=== PATIENT | male | born 1985 | race Caucasian/White ===

== ENCOUNTER 2018-08-15 15:32 | Emergency (ER) | payer BC ==
[2018-08-15 15:55] VITALS: BP 146/90
--- NOTE | 2018-08-15 16:16 | UC ---
Respiratory Complaint HPI - HPI Summary HPI Summary: 4 days of cough, chest congestion. sick contacts:none flu shot: no, declines rapid testing - History of Current Complaint Chief Complaint: UCGeneralIllness Stated Complaint: COUGH/CONGESTION Time Seen by Provider: 08/15/18 15:59 Pain Intensity: 0 Pain Scale Used: 0-10 Numeric Aggravating Factors: Nothing Alleviating Factors: Nothing Associated Signs And Symptoms: Negative: Dyspnea - Allergies/Home Medications Allergies/Adverse Reactions: Allergies Allergy/AdvReac Type Severity Reaction Status Date / Time No Known Allergies Allergy Verified 10/20/15 19:07 Home Medications: Home Medications Esomeprazole Magnesium [Nexium] 20 mg PO DAILY 08/15/18 [History Confirmed 08/15] PMH/Surg Hx/FS Hx/Imm Hx Previously Healthy: Yes Other History Of: Negative For: HIV - Surgical History Surgical History: Yes Surgery Procedure, Year, and Place: Right hand - Family History Known Family History: Positive: None Negative: Hypertension, Diabetes - Social History Alcohol Use: Occasionally Substance Use Type: None Smoking Status (MU): Former Smoker - Immunization History Most Recent Influenza Vaccination: Not the Season Review of Systems All Other Systems Reviewed And Are Negative: Yes Constitutional: Positive: Fatigue. Negative: Fever, Chills Skin: Negative: Rash Eyes: Negative: Drainage ENT: Positive: Sore Throat - one day of this, resolved on its own, Sinus Congestion. Negative: Ear Ache, Nasal Discharge Respiratory: Positive: Cough. Negative: Shortness Of Breath Cardiovascular: Negative: Chest Pain Gastrointestinal: Negative: Vomiting, Diarrhea, Nausea Neurological: Negative: Headache Physical Exam Triage Information Reviewed: Yes Appearance: Well-Appearing Vital Signs: Initial Vital Signs Temp 98.9 F 08/15/18 15:51 Pulse 85 08/15/18 15:51 Resp 16 08/15/18 15:51 BP 146/90 08/15/18 15:51 Pulse Ox 99 08/15/18 15:51 Vital Signs Reviewed: Yes Eyes: Positive: Conjunctiva Clear ENT: Positive: Pharynx normal, TMs normal, Uvula midline Neck: Positive: Supple, Nontender, No Lymphadenopathy Respiratory Exam: Normal Cardiovascular Exam: Normal Neurological: Positive: Alert Skin: Negative: Rashes UC Diagnostic Evaluation - Laboratory O2 Sat by Pulse Oximetry: 99 Respiratory Course/Dx - Course Course Of Treatment: Acute URI symptoms assoc. w/ occasional wheezing. none heard on exam. exam lung sounds normal. vitals good. afebrile and good O2. albuterol for symptoms. - Differential Dx/Diagnosis Differential Diagnosis/HQI/PQRI: Asthma, Bronchitis, Lower Resp Infection, Sinusitis Provider Diagnosis: URI (upper respiratory infection) Discharge - Sign-Out/Discharge Documenting (check all that apply): Patient Departure All imaging exams completed and their final reports reviewed: No Studies - Discharge Plan Condition: Good Disposition: HOME Prescriptions: Albuterol HFA INHALER* [Ventolin HFA Inhaler*] 2 puff INH Q4H PRN #1 mdi PRN Reason: Cough Patient Education Materials: Upper Respiratory Infection (ED) Forms: *Work Release Referrals: No Primary Care Phys,NOPCP [Primary Care Provider] - Additional Instructions: Please follow up with pcp if worsening. - Billing Disposition and Condition Condition: GOOD Disposition: Home
== END 2018-08-15 16:29 | disposition home or self-care (01) ==
LOC: UCCORT 15:32
DX: J06.9 Acute upper respiratory infection, unspecified (principal); R09.89 Other specified symptoms and signs involving the circulatory and respiratory systems; Z87.891 Personal history of nicotine dependence
CPT/HCPCS: 99212; G0463

== ENCOUNTER 2018-11-04 14:20 | Emergency (ER) | payer BC ==
[2018-11-04 14:59] VITALS: BP 162/97
--- NOTE | 2018-11-04 15:13 | UC ---
Throat Pain/Nasal Mathew HPI - HPI Summary HPI Summary: Sore throat for 2 or 3 days. Patient took 2 doses of amoxicillin 875 mg from a leftover prescription. He states his uvula had been swollen and red but now was much better. - History of Current Complaint Chief Complaint: UCRespiratory Stated Complaint: SORE THROAT Time Seen by Provider: 11/04/18 14:55 Hx Obtained From: Patient Onset/Duration: Gradual Onset Severity: Mild Pain Intensity: 0 Cough: None Associated Signs & Symptoms: Positive: Negative - Allergies/Home Medications Allergies/Adverse Reactions: Allergies Allergy/AdvReac Type Severity Reaction Status Date / Time No Known Allergies Allergy Verified 11/04/18 14:55 PMH/Surg Hx/FS Hx/Imm Hx Previously Healthy: Yes Other History Of: Negative For: HIV - Surgical History Surgical History: Yes Surgery Procedure, Year, and Place: Right hand - Family History Known Family History: Positive: None Negative: Hypertension, Diabetes - Social History Alcohol Use: Daily Alcohol Amount: "couple beers a day" Substance Use Type: None Smoking Status (MU): Light Every Day Tobacco Smoker Type: Cigarettes Amount Used/How Often: 1 cig/daily - Immunization History Most Recent Influenza Vaccination: Not the Season Review of Systems All Other Systems Reviewed And Are Negative: Yes ENT: Positive: Sore Throat Is Patient Immunocompromised?: No Physical Exam Triage Information Reviewed: Yes Appearance: Well-Appearing, No Pain Distress, Well-Nourished Vital Signs: Initial Vital Signs Temp 98.7 F 11/04/18 14:55 Pulse 100 11/04/18 14:55 Resp 17 11/04/18 14:55 BP 162/97 11/04/18 14:55 Pulse Ox 99 11/04/18 14:55 Vital Signs Reviewed: Yes Eye Exam: Normal ENT: Positive: TMs normal, Uvula midline - The uvula has a healing aphthous ulcer present.. Negative: Tonsillar swelling, Tonsillar exudate, Trismus, Muffled voice, Hoarse voice Neck exam: Normal Neck: Positive: Supple, Nontender, No Lymphadenopathy Respiratory: Positive: Lungs clear, Normal breath sounds, No respiratory distress, No accessory muscle use Cardiovascular: Positive: RRR, No Murmur, Pulses Normal, Brisk Capillary Refill Abdominal Exam: Normal Bowel Sounds: Positive: Present Musculoskeletal Exam: Normal Neurological Exam: Normal Psychological Exam: Normal Skin Exam: Normal Throat Pain/Nasal Course/Dx - Course Course Of Treatment: Rapid stress test was negative - Differential Dx/Diagnosis Provider Diagnosis: Pharyngitis Discharge - Sign-Out/Discharge Documenting (check all that apply): Patient Departure All imaging exams completed and their final reports reviewed: No Studies - Discharge Plan Condition: Fair Disposition: HOME Patient Education Materials: Canker Sores (ED) Referrals: [facility] [Outside] No Primary Care Phys,NOPCP [Primary Care Provider] - Additional Instructions: Increase fluids, warm saltwater gargles, throat lozenges. If not follow-up in 4 or 5 days if you continue to have a sore throat and do not take any leftover antibiotics. - Billing Disposition and Condition Condition: FAIR Disposition: Home - Attestation Statements Provider Attestation: Patient not seen by me. I was available for consult. I did not disposition this patient
== END 2018-11-04 15:18 | disposition home or self-care (01) ==
LOC: UCCORT 14:20
DX: J02.9 Acute pharyngitis, unspecified (principal); F17.210 Nicotine dependence, cigarettes, uncomplicated
CPT/HCPCS: 87651; 99211; G0463

== ENCOUNTER 2019-02-15 14:07 | Emergency (ER) | payer BC ==
[2019-02-15] MEDS ORDERED: LORazepam TAB(*) 1 MG PO ONE (14:24)
--- NOTE | 2019-02-15 14:26 | UC ---
Shortness of Breath HPI - HPI Summary HPI Summary: 33-year-old male presents with 3 day history of chest discomfort that he describes as feeling like a "chest cold". Patient reports that while driving to the urgent care center he became very anxious and had a sudden worsening of the chest tightness, became very short of breath, and felt like his heart was racing. States he has had issues with panic attacks in the past and has been evaluated in the emergency room for this 2 or 3 times. Patient reports he was initially treating his symptoms with Mucinex which she felt was helping however decided to add a cold and flu medication which he admits to taking additional doses over the recommended. His significant other who was with him reports that he has been obsessively checking the Internet regarding his symptoms as well as frequently checking his pulse rate and blood pressure multiple times a day. Denies fever, chills, ear pain, nasal congestion, sore throat, palpitations, diaphoresis, abdominal pain, nausea, or vomiting. - History of Current Complaint Stated Complaint: SOB,TIGHTNESS OF CHEST Time Seen by Provider: 02/15/19 14:16 Hx Obtained From: Patient - Allergy/Home Medications Allergies/Adverse Reactions: Allergies Allergy/AdvReac Type Severity Reaction Status Date / Time No Known Allergies Allergy Verified 11/04/18 14:55 Home Medications: Home Medications Esomeprazole Magnesium [Nexium] 10 mg PO DAILY 02/15/19 [History Confirmed 02/15] Levocetirizine Dihydrochloride [Xyzal Allergy 24Hr] 5 mg PO DAILY PRN 02/15/19 [ History Confirmed 02/15/19] Severe Cold And Flu Med 2 tab PO BID PRN 02/15/19 [History Confirmed 02/15/19] PMH/Surg Hx/FS Hx/Imm Hx GI/ History: Gastroesophageal Reflux Other History Of: Negative For: HIV - Surgical History Surgical History: Yes Surgery Procedure, Year, and Place: Right hand - Family History Known Family History: Positive: Non-Contributory - Social History Occupation: Employed Full-time Lives: With Family Alcohol Use: Daily Alcohol Amount: "couple beers a day" Substance Use Type: None Smoking Status (MU): Light Every Day Tobacco Smoker Type: Cigarettes Amount Used/How Often: 1 cig/daily - Immunization History Most Recent Influenza Vaccination: Not the Season Review of Systems All Other Systems Reviewed And Are Negative: Yes Constitutional: Positive: Fatigue. Negative: Fever, Chills Eyes: Negative: Drainage, Eye Redness ENT: Positive: Nasal Discharge, Sinus Congestion. Negative: Sore Throat, Ear Ache, Sinus Pain/Tenderness Respiratory: Positive: Shortness Of Breath. Negative: Cough Cardiovascular: Negative: Palpitations, Chest Pain Gastrointestinal: Negative: Abdominal Pain, Vomiting, Nausea Genitourinary: Positive: Negative Musculoskeletal: Positive: Negative Neurological: Positive: Negative Is Patient Immunocompromised?: No Physical Exam - Summary Physical Exam Summary: GENERAL APPEARANCE: Well developed, well nourished, alert and cooperative, and appears to be in no acute distress. EYES: Conjunctiva clear. No drainage. EARS: External auditory canals and tympanic membranes clear, hearing grossly intact. NOSE: No nasal discharge. THROAT: Pharynx normal, No tonsilar inflammation, swelling, exudate, or lesions. Uvula midline. NECK: Neck supple, non-tender without lymphadenopathy. CARDIAC: Normal S1 and S2. No S3, S4 or murmurs. Tachycardic. Rhythm is regular. There is no peripheral edema, cyanosis or pallor. Extremities are warm and well perfused. Capillary refill is less than 2 seconds. Peripheral pulses intact. LUNGS: Clear to auscultation without rales, rhonchi, wheezing or diminished breath sounds. ABDOMEN: Positive bowel sounds. Soft, nondistended, nontender. No guarding or rebound. No masses or hepatosplenomegally. MUSKULOSKELETAL: ROM intact to all extremities. No joint erythema or tenderness. Normal muscular development. Normal gait. SKIN: Skin normal color, texture and turgor with no lesions or eruptions. Triage Information Reviewed: Yes Vital Signs Reviewed: Yes Diagnostics - EKG Cardiac Rate: Tachycardia Cardiac Rhythm: Sinus: Normal Ectopy: None ST Segment: Normal EKG Comparison: Other - No comparison available Summary of EKG Findings: ST rate of 105. T-wave inversion in lead III likely normal variant. No ectopy or JUANA. Re-Evaluation - Re-Evaluation First Eval Re-Evaluation Time: 15:45 Change: Improved Comment: Patient states he is feeling better. No chest pain or SOB. Repeat EKG shows NSR at rate of 95. Continues to have T-wave inversion in lead III that is likely normal variant. No ectopy or JUANA. Shortness of Breath Dx - Course Course Of Treatment: 33-year-old male presents with 3 day history of chest discomfort that he describes as feeling like a "chest cold". Patient reports that while driving to the urgent care center he became very anxious and had a sudden worsening of the chest tightness, became very short of breath, and felt like his heart was racing. States he has had issues with panic attacks in the past and has been evaluated in the emergency room for this 2 or 3 times. Patient reports he was initially treating his symptoms with Mucinex which she felt was helping however decided to add a cold and flu medication which he admits to taking additional doses over the recommended. His significant other who was with him reports that he has been obsessively checking the Internet regarding his symptoms as well as frequently checking his pulse rate and blood pressure multiple times a day. Denies fever, chills, ear pain, nasal congestion, sore throat, palpitations, diaphoresis, abdominal pain, nausea, or vomiting. Patient was hypertensive and tachycardic at triage but otherwise had stable vital signs. His exam was overall unremarkable. Initial 12-lead EKG showed a sinus tachycardia at a rate of 105, T-wave inversion in lead 3 that is likely a normal variant however no previous EKGs were available for comparison. There was no ectopy or ST elevations. Patient was given lorazepam 1 mg PO and observed for approximately one hour. Patient did report improvement in his symptoms. Repeat EKG showed a normal sinus rhythm at a rate of 95. He remained hypertensive with otherwise stable vital signs. Patient was advised to stop cold and flu medications as this could be contributing to some of his symptomatology. We also discussed that his initial symptoms could likely be from a mild viral illness and would recommend continued symptomatic treatment. He was provided with the information for the [facility] physician referral service to assist him with establishing with a primary care provider. It is recommended that he follow up within 2-4 weeks. Anticipatory guidance and warning symptoms were reviewed with the patient. Verbalized understanding and agrees with plan of care - Differential Dx/Diagnosis Differential Diagnosis/HQI/PQRI: [place], Pneumonia, Pulmonary Embolism, Other - URI , Panic attack Provider Diagnosis: Chest tightness, Panic attack Discharge - Sign-Out/Discharge Documenting (check all that apply): Patient Departure All imaging exams completed and their final reports reviewed: No Studies - Discharge Plan Condition: Stable Disposition: HOME Patient Education Materials: Panic Attack (ED) Referrals: No Primary Care Phys,NOPCP [Primary Care Provider] - [facility] [place] [facility] [place]Outside] Additional Instructions: Your initial EKG showed a rapid heart rate but was otherwise normal and the repeat EKG was also normal including a normal rate. I suspect that your initial symptoms may be from a mild viral upper respiratory infection and that the symptoms that developed just prior to arrival or most likely from a panic attack. You are given a medication called lorazepam in the clinic to help with your symptoms. You may continue to use [id number] Mucinex as directed however I would advise that you stop taking any of the cold and flu medication as this could be contributing to some of your fast heart rate and anxiety. Your blood pressure in the clinic today was also elevated however this may be related to the cold and flu medications you been taken as well as a symptom of your panic attack. It is recommended that you have this rechecked. Have provided you with the contact information for the [facility] physician referral service. I would recommend that you contact him for assistance with establishing with a primary care provider within the next 2-4 weeks. Seek immediate medical attention in the emergency room if you develop severe chest pain, difficulty breathing, he will break out into a cold sweat, have any nausea or vomiting, or any worsening of symptoms. - Billing Disposition and Condition Condition: STABLE Disposition: Home - Attestation Statements Provider Attestation: I was available for consult. This patient was seen by the [facility]. The patient was presented to but not seen by or examined by me. I reviewed the initial EKG: Sinus tachycardia, <[address] depression in lead I, TWI , Normal MT and QRS. No JUANA. -Jesse Reynolds MD
[2019-02-15 15:40] VITALS: BP 152/95
== END 2019-02-15 16:12 | disposition home or self-care (01) ==
LOC: UCCORT 14:07
DX: R07.89 Other chest pain (principal); F41.0 Panic disorder [episodic paroxysmal anxiety]; R00.0 Tachycardia, unspecified; K21.9 Gastro-esophageal reflux disease without esophagitis; F17.210 Nicotine dependence, cigarettes, uncomplicated
CPT/HCPCS: 93005; 99212; A9270-GY; G0463

== ENCOUNTER 2019-02-17 16:25 | Emergency (ER) | payer BC ==
[2019-02-17 18:00] LABS: ABS Lymphocytes 1.3 10^3/ul (1.0-4.8); ABS Monocytes 0.5 10^3/ul (0-0.8); ABS Neutrophils 6.1 10^3/ul (1.5-7.7); Eosinophil % 0.3 %; Hematocrit 44 % (42-52); Hemoglobin 15.9 g/dL (14.0-18.0); Lymphocyte % 16.1 %; Mean Corpuscular HGB Conc 37 g/dL (31-36); Mean Corpuscular Hemoglobin 34 pg (27-31); Mean Corpuscular Volume 93 fL (80-94); Mean Platelet Volume 8.4 fL (7.4-10.4); Platelet Count 211 10^3/uL (150-450); Red Blood Count 4.68 10^6 /uL (4.18-5.48); Red Cell Distribution Width 13 % (10-15)
--- NOTE | 2019-02-17 18:02 | ED ---
HPI Chest Pain - HPI Summary HPI Summary: This patient is a 35 year old M presenting to [facility] with a chief complaint of chest pain since 4 days ago. He reports when he thinks about his chest pain that is when he feels his left arm start to tingle. Pt has an undiagnosed PMHx of panic attacks his whole life. Patient reports anxiety, diaphoretic, sense of doom, and nausea. Patient denies a history of PR, CHF, DVT or PE. Patient denies a family history of early cardiac , or PR (although he is not 100% sure). Patient denies SOB, fever. Pt has a PMHx of acid reflux, and previously when he went to ED he was dx with indigestion. - History of Current Complaint Chief Complaint: EDGeneral Time Seen by Provider: 02/17/19 17:30 Hx Obtained From: Patient Onset/Duration: Started Days Ago, Still Present Timing: Lasting Days Initial Severity: Mild Current Severity: Mild Pain Intensity: 2 Pain Scale Used: 0-10 Numeric Chest Pain Location: Diffuse Chest Pain Radiates: Yes Chest Pain Radiates To:: Arm Character: Tightness Aggravating Factor(s): Other: - thinking about it Alleviating Factor(s): Nothing Associated Signs and Symptoms: Positive: Chest Pain, Tingling, Diaphoresis, Nausea - Allergy/Home Medications Allergies/Adverse Reactions: Allergies Allergy/AdvReac Type Severity Reaction Status Date / Time No Known Allergies Allergy Verified 02/17/19 16:37 Home Medications: Home Medications Ascorbic Acid/Multivit-Min [Emergen-C 1,000 mg Packet] 1 packet PO DAILY [History Confirmed 02/17/19] PMH/Surg Hx/FS Hx/Imm Hx Endocrine/Hematology History: Denies: Hx Diabetes Cardiovascular History: Denies: Hx Hypertension Respiratory History: Denies: Hx Asthma, Hx Chronic Obstructive Pulmonary Disease (COPD), Hx Lung Cancer Neurological History: Denies: Hx Transient Ischemic Attacks (TIA) - Surgical History Surgery Procedure, Year, and Place: Right hand Infectious Disease History: No Infectious Disease History: Denies: Traveled Outside the [place] in Last 30 Days - Family History Known Family History: Positive: None, Non-Contributory Negative: Hypertension, Diabetes - Social History Occupation: Employed Full-time Alcohol Use: Daily Alcohol Amount: "couple beers a day" Substance Use Type: Reports: None Smoking Status (MU): Light Every Day Tobacco Smoker Type: Cigarettes Amount Used/How Often: 1 cig/daily Review of Systems Positive: Skin Diaphoresis. Negative: Fever Positive: Chest Pain Negative: Shortness Of Breath Positive: Nausea Positive: Other - pos - tingling in left arm Positive: Anxious All Other Systems Reviewed And Are Negative: Yes Physical Exam - Summary Physical Exam Summary: Constitutional: Well-developed, Well-nourished, Alert. (-) Distressed Skin: Warm, Dry HENT: Normocephalic; Atraumatic Eyes: Conjunctiva normal Neck: Musculoskeletal ROM normal neck. (-) JVD, (-) Stridor, (-) Nuchal rigidity Cardio: Rhythm regular, tachycardic, Heart sounds normal; Intact distal pulses; Radial pulses are 2+ and symmetric. (-) Murmur Pulmonary/Chest wall: Effort normal. (-) Respiratory distress, (-) Wheezes, (-) Rales Abd: Soft, (-) tenderness, (-) Distension, (-) Guarding, (-) Rebound Musculoskeletal: (-) Edema Lymph: (-) Cervical adenopathy Neuro: Alert, Oriented x3 Psych: anxious Triage Information Reviewed: Yes Vital Signs On Initial Exam: Initial Vitals Temp Pulse Resp BP Pulse Ox 98.6 F 107 16 167/117 99 02/17/19 16:34 02/17/19 16:34 02/17/19 16:34 02/17/19 16:34 02/17/19 16:34 Vital Signs Reviewed: Yes Diagnostics - Vital Signs Vital Signs Temp Pulse Resp BP Pulse Ox 02/17/19 16:34 98.6 F 107 16 167/117 99 - Laboratory Result Diagrams: 02/17/19 17:52 02/17/19 17:52 Lab Statement: Any lab studies that have been ordered have been reviewed, and results considered in the medical decision making process. - Radiology CXR Radiology Interpretation Completed By: Radiologist Summary of Radiographic Findings: CXR reveals, per radiologist, IMPRESSION: NO EVIDENCE FOR ACTIVE CARDIOPULMONARY DISEASE. ED physician has reviewed this radiology report. - EKG 1638 Cardiac Rate: Tachycardia EKG Rhythm: Sinus Rhythm Summary of EKG Findings: An EKG at 1638 reveals sinus tachycardia 107 bpm, t- wave inversion lead III, no change from prior EKG on 02/15/19 Re-Evaluation - Re-Evaluation First Eval Re-Evaluation Time: 19:25 Comment: Pt felt better after GI cocktail. Second Eval Re-Evaluation Time: 20:17 Comment: Discharge evaluation, HR 85 bpm. Chest Pain Course/Dx - Course Course Of Treatment: 33-year-old male with a self-reported history of anxiety presents with palpitations and chest tightness. Patient is well-appearing,. Chest Pain DDX: The patient is well appearing, with mild tachycardia. Given the patient's clinical presentation, highest on differential is atypical chest pain. Although less likely, differential also includes the following: -- Pneumothorax: Equal breath sounds, story inconsistent since gradual onset of symptoms. CXR shows no evidence of pneumothorax. Unlikely. --Cardiac tamponade : The history and physical are not concerning for tamponade. No Pulsus Paradoxus , no tachypnea. Unlikely. --Mediastinitis or esophageal rupture: The history is not consistent, as the patient has had no recent history of significant wretching, instrumentation, or mediastinal surgeries. Unlikely. --Aortic dissection: The patient does not describe the classical tearing chest pain radiating into the back, and the CXR does not show mediastinal widening or other signs of aortic dissection. Unlikely. --PE: tachycardic likely in the setting of alcohol use. D dimer <200. --ACS: The initial EKG shows no ischemic changes. The initial troponin is not elevated. Heart score - HEART Score. Based on a HEART score of 2 the patient has a low risk (<2% chance) of major adverse cardiac event within the next 6 weeks. I explained to the patient that based on the work-up today, her risk of heart attack is low and that he/she will be discharged with outpatient follow-up. Strict return precautions were discussed regarding worsening chest pain, new / atypical pain, shortness of breath, or any other serious concerns. Patient endorsed understanding and has no questions at this time. Source --. Terence BE, Ar AJ, Lanette KD, Shalom LOZANO, Mary Alice EG, Reji A, Jrery RF,. Abi AJ, Victoriano R, Rafael R, Juliet SH, van Taye R, Mary Alice TP, van mohsen Webber F,. Marie ARRIOLA, Alanis SEALS , Eva AW, Jodie POWELL. A prospective validation of. the HEART score for chest pain patients at the emergency department. Int J. Cardiol. 2013 Apr 3;168 (3):2153-8. 0-3: 2.5% risk of adverse cardiac event. In the HEART Score, these patients were discharged. (0.99% retrospective) (1.7% prospective). 4-6: 20.3% risk of adverse cardiac event, suggesting admission to the hospital. 11.6% (16.6 % prospective). =7: 72.7% risk of adverse cardiac event, suggesting early invasive measures with these patients. 65.2% (50.1% prospective) - Diagnoses Provider Diagnoses: Chest pain, Palpitations Discharge - Sign-Out/Discharge Documenting (check all that apply): Patient Departure - Discharge Patient Received Moderate/Deep Sedation with Procedure: No - Discharge Plan Condition: Stable Disposition: HOME Patient Education Materials: Chest Pain (ED), Heart Palpitations (ED) Referrals: [facility] [Outside] Additional Instructions: You were seen in the emergency department for pain and palpitations. Your EKG and chest x-ray are normal. Your labs did not show evidence of a heart attack or a blood clot in your lungs. If any studies were not completed at the time of discharge you will be called with the relevant results. Please follow up with your primary care doctor in next 2-3 days and return to emergency department for worsening pain, trouble breathing, chest pain or concerning symptoms. - Billing Disposition and Condition Condition: STABLE Disposition: Home - Attestation Statements Document Initiated by Jadiel: Yes Documenting Scribe: Carmen Zarate Provider For Whom Jadiel is Documenting (Include Credential): Dr. Chloé Pena MD Scribe Attestation: Carmen Paul scribed for Dr. Chloé Pena MD on 02/17/19 at 2103. Scribe Documentation Reviewed: Yes Provider Attestation: The documentation as recorded by the Carmen luo accurately reflects the service I personally performed and the decisions made by me, Dr. Chloé Pena MD Status of Scribe Document: Viewed
[2019-02-17 18:15] LABS: Albumin 5.2 g/dL (3.2-5.2); Albumin/Globulin Ratio 1.6 (1-3); BUN/Creatinine Ratio 6.3 (8-20); Calcium 10.3 mg/dL (8.6-10.3); EGFR African American 110.5 (>60); EGFR Non-African American 91.4 (>60); Globulin 3.2 g/dL (2-4); Potassium 3.8 mmol/L (3.5-5.0); Total Bilirubin 1.2 mg/dL (0.2-1.0); Total Protein 8.4 g/dL (6.4-8.9)
[2019-02-17] MEDS ORDERED: Lidocaine 2% VISCOUS* 15 ML UDC PO ONE (18:45)
[2019-02-17] MEDS ORDERED: Al Hydrox/Mg Hydrox/Simet LIQ* 30 ML UDC PO ONE (18:45)
[2019-02-17 20:29] VITALS: BP 132/74
== END 2019-02-17 20:20 | disposition home or self-care (01) ==
LOC: ED 16:25
DX: R07.9 Chest pain, unspecified (principal); R00.2 Palpitations; F17.210 Nicotine dependence, cigarettes, uncomplicated
CPT/HCPCS: 36415; 71046; 80053; 84443; 84484; 85025; 85379; 93005; 99282; A9270-GY